=== PATIENT | female | born 1970 | race Caucasian/White ===

== ENCOUNTER 2020-09-11 17:25 | Emergency (ER) | payer OTHER ==
[~2020-09-11 17:25] MED LIST: CLEOCIN HCL300 MG PO; NAPROSYN500 MG PO; NORCO 7.5-3251 EACH PO
== END 2020-09-11 19:35 | disposition home or self-care (01) ==
LOC: ER1 17:25
DX: T19.2XXA Foreign body in vulva and vagina, initial encounter (principal); E11.9 Type 2 diabetes mellitus without complications; I10 Essential (primary) hypertension
CPT/HCPCS: 99283